=== PATIENT | male | born 1990 | race Caucasian/White ===

== ENCOUNTER 2022-06-04 16:11 | Emergency (ER) | payer BC ==
[~2022-06-04] VITALS: Ht 180.3 cm; Wt 86.4 kg
[2022-06-04 17:05] LABS: BASO # 0.1 K/mm3 (0.0-0.2); BASO % 0.9 % (0.0-2.0); EOS # 0.3 K/mm3 (0.0-0.7); EOS % 3.2 % (0.0-4.0); GRAN # 5.8 K/mm3 (1.4-6.5); GRAN % 66.6 % (42.2-75.2); HEMATOCRIT 40.2 % (42.0-52.0); HEMOGLOBIN 13.7 g/dl (13.5-18.0); LYMPH # 1.9 K/mm3 (1.2-3.4); LYMPH % 21.5 % (20.0-51.0); MEAN CELL VOLUME 87 fl (80.0-100.0); MEAN CORPUSCULAR HEMOGLOBIN 30 pg (27-31); MEAN CORPUSCULAR HGB CONC 34 g/dl (33.0-37.0); MEAN PLATELET VOLUME 11.1 fl (7.4-10.4); MONO # 0.7 K/mm3 (0.1-0.6); MONO % 7.6 % (1.7-9.3); PLATELET COUNT 315 K/mm3 (130-400); REDCELL DISTRIBUTION WIDTH-CV 13.9 % (11.5-14.5)
[2022-06-04 17:18] LABS: BILIRUBIN,TOTAL 0.6 mg/dL (0.2-1.2); CALCIUM 8.7 mg/dL (8.4-10.2); CREATININE, serum 1.22 mg/dL (0.72-1.25); POTASSIUM 3.7 mmol/L (3.5-4.5)
[2022-06-04 18:44] VITALS: BP 104/60; PULSE 56; TEMP 98.7
== END 2022-06-04 18:44 | disposition home or self-care (01) ==
LOC: COL.ER 16:11
PROVIDERS: Physician Assistant
DX: R42 Dizziness and giddiness (principal); R07.89 Other chest pain
CPT/HCPCS: J0780; J1885; J7030

== ENCOUNTER 2023-09-14 21:24 | Emergency (ER) | payer BC ==
[~2023-09-14] VITALS: Ht 177.8 cm; Wt 84.1 kg
[2023-09-14 21:30] VITALS: TEMP 98.9
[2023-09-14] MEDS ORDERED: NS 1,000 ML IV ONE (22:00)
[2023-09-14] MEDS ORDERED: Ondansetron 4 MG/2 ML VIAL IV ONE (22:00)
[2023-09-14] MEDS ORDERED: Morphine 4 MG/ML VIAL IV ONE (22:00)
[2023-09-14 22:23] LABS: PH 5.5 (5.0-8.5); URINE APPEARANCE TURBID (CLEAR/HAZY); URINE BLOOD NEGATIVE (NEGATIVE); URINE COLOR YELLOW (YELLOW); URINE GLUCOSE NEGATIVE (NEGATIVE); URINE KETONE NEGATIVE (NEGATIVE); URINE NITRATE NEGATIVE (NEGATIVE); URINE PROTEIN(semi-quant) NEGATIVE (NEGATIVE); URINE UROBILINOGEN 0.2 E.U/dL (0.2-1.0)
[2023-09-14 22:24] LABS: BASO # 0.1 K/mm3 (0.0-0.2); BASO % 0.6 % (0.0-2.0); EOS # 0.3 K/mm3 (0.0-0.7); EOS % 2.7 % (0.0-4.0); GRAN # 8.9 K/mm3 (1.4-6.5); GRAN % 71.1 % (42.2-75.2); HEMATOCRIT 40.9 % (42.0-52.0); LYMPH # 1.9 K/mm3 (1.2-3.4); LYMPH % 15.4 % (20.0-51.0); MEAN CELL VOLUME 88 fl (80.0-100.0); MEAN CORPUSCULAR HEMOGLOBIN 30 pg (27-31); MEAN CORPUSCULAR HGB CONC 34 g/dl (33.0-37.0); MEAN PLATELET VOLUME 10.9 fl (7.4-10.4); MONO # 1.2 K/mm3 (0.1-0.6); MONO % 9.9 % (1.7-9.3); PLATELET COUNT 281 K/mm3 (130-400); RED BLOOD COUNT 4.67 M/mm3 (4.20-5.60); REDCELL DISTRIBUTION WIDTH-CV 12.5 % (11.5-14.5)
[2023-09-14 22:30] LABS: COLLECTION METHOD CLEAN CATCH
[2023-09-14 22:46] LABS: C-REACTIVE PROTEIN 0.88 mg/dL (0.00-0.50); CALCIUM 9.2 mg/dL (8.4-10.2); CREATININE, serum 1.04 mg/dL (0.72-1.25); POTASSIUM 4.1 mEq/L (3.5-4.5)
[2023-09-14] MEDS ORDERED: Iohexol 300 - 100 ML VIAL IV ONE (23:14)
[2023-09-14] MEDS ORDERED: NS 50 ML IV ONE (23:16)
[2023-09-15] MEDS ORDERED: Morphine 4 MG/ML VIAL IV ONE (00:30)
[2023-09-15] MEDS ORDERED: Azithromycin 250 MG TAB PO ONE (01:00)
[2023-09-15] MEDS ORDERED: Home HYDROcodone/Acetaminophen 5/325 MG #4 TABS/PACK PO ONE (01:00)
[2023-09-15] MEDS ORDERED: ZITHROMAX500 M2 PO (01:16)
[2023-09-15 02:00] VITALS: BP 124/85; PULSE 62
[2023-09-15] MEDS ORDERED: PERCOCET 325 MG1 TA2 PO (11:07)
[2023-09-15] MEDS ORDERED: BENTYL 20MG20 MG/TAB PO (11:07)
== END 2023-09-15 02:00 | disposition home or self-care (01) ==
LOC: COL.ER 21:24
PROVIDERS: Nurse Practitioner
DX: K52.9 Noninfective gastroenteritis and colitis, unspecified (principal); F17.290 Nicotine dependence, other tobacco product, uncomplicated
CPT/HCPCS: J2270; J2405; J7030; Q9967

== ENCOUNTER 2023-09-15 09:13 | Emergency (ER) | payer BC ==
[~2023-09-15] VITALS: Ht 177.8 cm; Wt 84.1 kg
[~2023-09-15 09:13] MED LIST: ZITHROMAX500 M2 PO
[2023-09-15 09:23] VITALS: TEMP 97.9
[2023-09-15 10:15] LABS: BASO # 0.1 K/mm3 (0.0-0.2); BASO % 0.5 % (0.0-2.0); EOS # 0.3 K/mm3 (0.0-0.7); EOS % 2.3 % (0.0-4.0); GRAN % 78.7 % (42.2-75.2); HEMATOCRIT 43.1 % (42.0-52.0); HEMOGLOBIN 14.6 g/dl (13.5-18.0); LYMPH # 1.4 K/mm3 (1.2-3.4); MEAN CELL VOLUME 89 fl (80.0-100.0); MEAN CORPUSCULAR HEMOGLOBIN 30 pg (27-31); MEAN CORPUSCULAR HGB CONC 34 g/dl (33.0-37.0); MONO # 1.1 K/mm3 (0.1-0.6); MONO % 8.1 % (1.7-9.3); PLATELET COUNT 279 K/mm3 (130-400); RED BLOOD COUNT 4.84 M/mm3 (4.20-5.60); REDCELL DISTRIBUTION WIDTH-CV 12.5 % (11.5-14.5)
[2023-09-15] MEDS ORDERED: Ondansetron 4 MG/2 ML VIAL IV ONE (10:15)
[2023-09-15] MEDS ORDERED: Ketorolac 30 MG/ML VIAL IV ONE (10:15)
[2023-09-15] MEDS ORDERED: LR 1,000 ML IV ONE (10:15)
[2023-09-15 10:29] LABS: C-REACTIVE PROTEIN 1.08 mg/dL (0.00-0.50); CALCIUM 9.1 mg/dL (8.4-10.2); CREATININE, serum 1.07 mg/dL (0.72-1.25); POTASSIUM 3.8 mEq/L (3.5-4.5); TOTAL PROTEIN 7.1 g/dl (6.2-8.1)
[2023-09-15] MEDS ORDERED: Dicyclomine 10 MG/ML 2 ML VIAL IM ONE (11:00)
[2023-09-15] MEDS ORDERED: Morphine 4 MG/ML VIAL IV ONE (11:00)
[2023-09-15] MEDS ORDERED: BENTYL 20MG20 MG/TAB PO (11:07)
[2023-09-15] MEDS ORDERED: PERCOCET 325 MG1 TA2 PO (11:07)
[2023-09-15 12:07] VITALS: BP 113/64; PULSE 63
== END 2023-09-15 12:07 | disposition home or self-care (01) ==
LOC: COL.ER 09:13
PROVIDERS: Physician Assistant
DX: K52.9 Noninfective gastroenteritis and colitis, unspecified (principal); K92.1 Melena
CPT/HCPCS: J0500; J1885; J2270; J2405; J7120